=== PATIENT | female | born 1950 | race Caucasian/White ===

== ENCOUNTER 2018-06-27 22:19 | Emergency (ER) | payer MEDICARE, BC ==
[~2018-06-27] VITALS: Ht 172.7 cm; Wt 95.5 kg
[2018-06-27] MEDS ORDERED: LEVOTHYROXINE100 MC1 (22:33)
[2018-06-27] MEDS ORDERED: PANTOPRAZOLE SO40 MG PO (22:34)
[2018-06-27] MEDS ORDERED: TREXALL15 MG PO (22:34)
[2018-06-27] MEDS ORDERED: LOSARTAN POTASS50 M1 (22:34)
[2018-06-27] MEDS ORDERED: PREDNISONE1 MG PO (22:34)
[2018-06-27] MEDS ORDERED: VICODIN 300 MG-1 TAB PO (22:35)
[2018-06-27] MEDS ORDERED: HYZAAR 100-12.1 EACH (22:35)
[2018-06-27] MEDS ORDERED: TOPCARE ASPIRIN81 M1 PO (22:36)
[2018-06-27] MEDS ORDERED: POTASSIUM CHLO20 ME3 PO (22:36)
[2018-06-27] MEDS ORDERED: FOLIC ACID1 MG PO (22:37)
[2018-06-27 23:21] LABS: EOS # 0.2 (0.04-0.40); EOS % 2.2 % (1.0-5.0); HEMATOCRIT 34.6 % (37.0-47.0); HEMOGLOBIN 11.3 g/dL (12.5-16.0); LYMPH# 2.1 (1.50-4.00); MEAN CELL VOLUME 99 fl (78-100); MEAN CORPUSCULAR HEMOGLOBIN 32 pg (27-31); MEAN CORPUSCULAR HGB CONC 33 g/dL (33-37); MEAN PLATELET VOLUME 9.3 fl (7.4-10.4); MONO # 0.7 (0.20-0.80); PLATELET COUNT 349 K/mm3 (130-400); RED BLOOD COUNT 3.51 M/mm3 (4.10-5.30); RED CELL DISTRIBUTION WIDTH 14.9 % (11.5-14.5); WHITE BLOOD COUNT 9.1 K/mm3 (4.8-10.8)
[2018-06-27 23:30] LABS: ALBUMIN 3.9 g/dL (3.5-5.0); CALCIUM 8.9 mg/dL (8.4-10.2); POTASSIUM 3.7 mmol/L (3.6-5.0); TOTAL BILIRUBIN 0.5 mg/dL (0.2-1.3); TOTAL PROTEIN 6.8 g/dL (6.3-8.2)
[2018-06-27 23:32] LABS: LIPASE 62 U/L (23-300)
[2018-06-28 01:53] VITALS: BP 94/58
== END 2018-06-28 01:53 | disposition home or self-care (01) ==
LOC: ED 22:19
PROVIDERS: Family Medicine
DX: R07.9 Chest pain, unspecified (principal); I48.91 Unspecified atrial fibrillation; I10 Essential (primary) hypertension; K21.9 Gastro-esophageal reflux disease without esophagitis; M06.9 Rheumatoid arthritis, unspecified; Z79.82 Long term (current) use of aspirin; Z96.642 Presence of left artificial hip joint